=== PATIENT | female | born 1980 | race Caucasian/White ===

== ENCOUNTER 2016-04-09 13:23 | Emergency (ER) | payer MEDICARE, MEDICAID ==
[2016-04-09 13:51] VITALS: BMI 26.6
[2016-04-09 13:53] VITALS: BP 126/85; PULSE 90; TEMP 97.3
--- NOTE | 2016-04-09 14:47 | DIRPT ---
CLINICAL DATA: 36-year-old female EXAM: LEFT ANKLE COMPLETE - 3+ VIEW COMPARISON: None. FINDINGS: There is no evidence of fracture, dislocation, or joint effusion. There is no evidence of arthropathy or other focal bone abnormality. Soft tissues are unremarkable. IMPRESSION: Negative. Electronically Signed By: Esdras Galeano M.D. On: 04/09/2016 14:44
[2016-04-09] MEDS ORDERED: OXYCODONE HCL 5 MG TABLET PO ONE (16:36)
--- NOTE | 2016-04-09 16:38 | EDPRACDOC ---
- General Information Chief Complaint: Ankle Pain Stated Complaint: FALL Time Seen by Provider: 04/09/16 16:15 Information Source: Patient Mode of Arrival: Car Home Medications: Home Medications Ciprofloxacin HCl [Cipro] 500 mg PO .BID X 10D 08/04/15 Clonazepam [Klonopin] 1 mg PO TID PRN 08/04/15 Methocarbamol [Robaxin] 500 mg PO TID PRN 08/04/15 PEG-Electrolytes (Miralax) [Miralax] 17 gm PO DAILY #1 box 08/04/15 Sulfamethoxazole/Trimethoprim [Bactrim Ds Tablet] 1 tab PO BID #14 tab 08/04/15 Hydrocodone/Acetaminophen [Lortab 5-325 mg Tablet] 1 each PO Q6-8H #14 tablet Ibuprofen Tablet [Motrin] 800 mg PO QID #30 tab 04/09/16 Allergies/Adverse Reactions: Allergies Allergy/AdvReac Type Severity Reaction Status Date / Time aripiprazole [From Abilify] Allergy See Verified 04/09/16 13:51 Comments quetiapine fumarate Allergy See Verified 04/09/16 13:51 [From Seroquel] Comments trazodone Allergy See Verified 04/09/16 13:51 Comments - History of Present Illness Onset: YEST HPI: PT PRESENTS WITH LEFT ANKLE PAIN FOLLOWING FALLING LAST NIGHT ON THE ICE. STATES SHE IS UNABLE TO PUT ANY WEIGHT ON THE FOOT. PRESENTS WITH 2+ PEDAL PULSE , BRISK CAP REFILL, NEURO-VASCULAR INTACT. Ankle Problem Location: Reports: Left, Lateral Mechanism: Reports: Blunt Trauma Circumstances: Reports: Fall Tetanus Up To Date?: No Able to Bear Weight: Limited Pain Severity: Reports: Moderate Associated Signs & Symptoms: Reports: Swelling - Treatment Prior to ED Arrival Reported Medications/Treatment [employer] Ibuprofen/Acetaminophen (Dose/ TYLENOL 2000MG-0500 Time) ED Past Medical History - History Reviewed Yes Nurses notes reviewed and agree except as marked - Social Medical History Smoking Status: Current some day smoker EDM Review of Systems - Review of Systems ROS Negative Except as Marked: Yes All systems reviewed and were negative except as marked - Physical Exam Constitutional: Alert Oriented to: Time, Person, Place Last recorded Vital Signs: Last Vital Signs Temp 97.3 F L 04/09/16 13:51 Pulse 90 04/09/16 13:51 Resp 20 04/09/16 13:51 BP 126/85 04/09/16 13:51 Pulse Ox 98 04/09/16 13:51 Oxygen Pulse Oxygen Saturation 98 O2 Device Oxygen Flow Rate Fraction of Inspired Oxygen ( FIO2) - HEENT Head: Normal ( normocephalic) Eye Exam: Normal (PERRL, EOMI, Sclera white) Oropharynx: Normal (Pharynx:Moist without exudate,Gums-no swelling) Nose: No Symptoms Reported (septum midline) Neck: Normal (FROM, trachea at midline) - Respiratory/Cardiovascular Respiratory: Normal - CTA (BBS clear to auscultation without adventitious sounds ) Cardiovascular: Normal (RRR without murmur, gallop or rub) - GI Auscultation: Normal (NABS) Palpation: Normal (Soft,No rebound or guarding, non distended) Tenderness: Non tender Rust's Sign: Negative Rectal Exam: Deferred - Musculoskeletal Back: Normal (Non-Tender) Extremities: Normal (Normal tone, Pulses 2+ No cyanosis or edema, FROM) - Integumentary Skin: Normal, Warm, Dry Lymphatics: Normal (no adenopathy) - Neurologic Memory Impaired: Normal Motor Function: Normal (Normal tone, Pulses 2+ No cyanosis or edema, FROM) Cranial Nerve: Normal (CN II-X11 intact sensation, strength 5/5) Cerebellar: Normal Mood Description: Normal Perception: Normal ED Ankle Problem Phys Exam - Musculoskeletal Ankle: Swelling, Limited ROM, Moderate Tenderness Achilles Tendon: Normal Knee: Normal Lower Leg: Normal Foot: Normal Distal Function/Circulation: Normal - Integumentary Skin: Normal Lymphatics: Normal - Differential Diagnosis Sprain Decision Time to Discharge: 16:38 - Departure Disposition: Home Condition: Stable Final Diagnosis: Ankle Sprain Instructions: RICE: Routine Care for Injuries, Ankle Sprain (ED) Education/Counseling Given To: Patient Education/Counseling Given Regarding: Diagnosis, Treatment, Prognosis, Follow Up Referrals: Adal Jaimes II, MD [Staff Physician] - One Week Dung Barber MD [Staff Physician] - One Week Prescriptions: Hydrocodone/Acetaminophen [Lortab 5-325 mg Tablet] 1 each PO Q6-8H #14 tablet Ibuprofen Tablet [Motrin] 800 mg PO QID #30 tab Additional Instructions: ICE AND ELEVATION IS VERY IMPORTANT. WEAR SPLINT AND USE CRUTCHES UNTIL PAIN IS GONE. IF PAIN PERSIST PLEASE MAKE A FOLLOW UP APPOINTMENT WITH [facility]
== END 2016-04-09 17:38 | disposition home or self-care (01) ==
LOC: ED 13:23 → EDMC 17:38
DX: S93.409A Sprain of unspecified ligament of unspecified ankle, initial encounter (principal); W00.0XXA Fall on same level due to ice and snow, initial encounter; Y93.9 Activity, unspecified
CPT/HCPCS: 73610; 99283; A9270; J3490